=== PATIENT | female | born 1985 | race Caucasian/White ===

== ENCOUNTER 2024-02-09 12:17 | Emergency (ER) | payer BC, SELFPAY ==
[2024-02-09 12:19] VITALS: BP 112/73; PULSE 84; RESP 16; TEMP 35.9; O2SAT 95; BMI 31.4
--- NOTE | 2024-02-09 12:29 | US_ITS ---
STUDY: ABDOMINAL ULTRASOUND - RIGHT UPPER QUADRANT REASON FOR VISIT: Female, 38 years old. ABDOMEN PAIN ABDOMEN PAIN TECHNIQUE: Ultrasound evaluation of the right upper quadrant was performed with real-time and static fajardo-scale imaging. TECHNICAL QUALITY: Adequate. COMPARISON: None FINDINGS: Liver: There is normal echogenicity of the liver. The bile ducts are within normal limits. There is hepatic color flow. The direction of portal flow is hepatopetal. There is no demonstrated mass lesion. Gallbladder: Normal distended gallbladder. The gallbladder wall measures 3.1 mm. There is a negative sonographic Juan''s sign. There is no pericholecystic fluid. There are multiple echogenic structures within the gallbladder, consistent with multiple gallstones. Common Bile Duct (C.B.D.): The common bile duct measures ( in mm): 4.4 Pancreas: Normal size of the head, body of the pancreas. There is normal echogenicity of the pancreas. There is no demonstrated pancreatic mass or cyst. Right Kidney: Normal size of the right kidney. The right kidney measures 11.3 cm. . Normal renal cortex. There is no demonstrated renal mass or cyst. There is no right hydronephrosis. Aorta: It is not visualized. There is too much overlying bowel gas. . US/Gallbladder IMPRESSION: GALLSTONES Note: Renal size measurements and size measurements of other organs etc may vary depending on modality and audio operator dependent variations in measurements. (i.e. Measuring a kidney on an US does not correlate with an exact same measurement on a CT.) Electronically Signed: Yvon Sanchez MD at 14:32 EDT ,
--- NOTE | 2024-02-09 12:30 | ED.VIS.GI ---
HPI HPI - GI History of Present Illness Chief Complaint: Abd Pain Narrative Narrative: 38-year-old female who denies significant past medical history presents with her because of right upper quadrant and back pain that started on Saturday. Patient states that she really has not eaten over the last 3 days because she has had decreased appetite. She states she started having back pain on the right on Saturday. Since then its travel more towards the front in the right upper quadrant. 3 days ago she did have a bout of nausea and vomiting where she vomited 3 times without any blood in her emesis. Since then she has had pain in that area. They relate history that she had bouts of right upper quadrant pain that usually resolves but this is the first time it has been more constant. No previous abdominal surgeries. No fevers or chills, no problems with bowel movements, but she really has not had a bowel movement since the beginning of this right upper quadrant pain that she is experiencing. They state that they went to an urgent care and were sent to the emergency department for imaging of her gallbladder. PFSH PFSH Home Medications ?Medication ?Instructions ?Recorded ?Last Taken ?Type hydrocodone-acetaminophen 5-325mg 1 tab PO Q6H PRN PRN Pain 3 days 02/09/24 Unknown Rx 5mg-325mg #12 TABLETS Allergy/AdvReac Type Severity Reaction Status Date / Time diphenhydramine (From AdvReac Unknown PT UNSURE Verified 02/09/24 12:19 Benadryl) OF REACTION Surgical History [place] teeth extracted Social History Smoking Status: Current every day smoker tobacco type: e-cigarettes ROS ROS ED ROS Narrative Constitutional: No fever, no chills. Decreased appetite. HEENT: No sore throat. No neck pain. No loss of vision. No rhinorrhea. Cardiovascular: No chest pain. No palpitations. No pedal edema. Respiratory: No cough, no shortness of breath. Abdominal: Right upper quadrant abdominal pain. Positive nausea and vomiting-resolved/improved Genitourinary: No dysuria. No hematuria. Musculoskeletal: No myalgias. No arthralgias. Neurologic: No headaches. No dizziness. No lightheadedness. Skin: No rash. No change in color. Psychiatric: No depression. No anxiety. EXAM Physical Exam Narrative Exam Narrative: Afebrile. Vital signs noted. Cardiovascular examination reveals a regular rate and rhythm. Lungs are clear to auscultation bilaterally. HEENT examination PERRL, EOMI. Abdominal examination reveals mild tenderness to palpation of the right upper quadrant with questionable Juan sign. Abdomen soft with positive bowel sounds. No guarding or rebound. Neurological examination nonfocal and nonlateralizing. Awake, alert. Const Vital Signs: 02/09/24 12:19 02/09/24 14:18 Temperature 96.6 F L Temperature Source Temporal Pulse Rate 84 97 Respiratory Rate 16 18 Blood Pressure 112/73 120/65 Blood Pressure Mean 86 83 Pulse Ox 95 99 Oxygen Delivery Method Room Air Room Air MDM MDM MDM Narrative Medical decision making narrative: Differential diagnosis includes cholecystitis versus choledocholithiasis versus pancreatitis. I have low suspicion for urinary tract infection as her pain is more in her upper portion of her back and right upper quadrant of her abdomen. Will obtain CBC, CMP, and lipase as well as gallbladder ultrasound. She was administered a bolus of normal saline and morphine and ondansetron for analgesia. I reviewed her laboratory work and she has slightly elevated white count of 11.2 which I think is nonspecific, hemoglobin normal at 13.2, hematocrit 39.2, platelet count 336. Sodium is slightly low at 135, potassium 3.7 glucose normal at 103. Lipase normal at 16. Hence, I doubt gallstone pancreatitis. I reviewed the radiology report of the ultrasound of the right upper quadrant/gallbladder. While there are gallstones, there is no evidence of obstruction, no RUDY cholecystic fluid, common bile duct 4.4 mm. I do not think she has cholecystitis. She did require an additional dose of morphine for analgesia. At this point in time, she feels improved and would like to be discharged. I asked about referral to surgery, but they are from out of town and actually live in [place]. She was written a prescription for 12 [place] tablets. She was told to start a low-fat diet and start clear liquids and advance as tolerated. She should seek medical attention with fever, increased pain, new or worsening symptoms. Disposition is discharged in stable condition. History & Record Review Discussion w/independent historian: Patient and Family () Lab Data Attestation: I reviewed the patient's lab results. Labs: Laboratory Results - last 24 hr 02/09/24 12:47 WBC 11.2 H RBC 4.18 L Hgb 13.4 Hct 39.2 MCV 93.8 MCH 32.1 H MCHC 34.2 RDW Std Deviation 42.9 RDW Coeff of [place] 12.5 Plt Count 336 MPV 9.5 Immature Gran % (Auto) 0.400 Neut % (Auto) 73.1 H Lymph % (Auto) 15.7 L [place] % (Auto) 9.0 Eos % (Auto) 1.4 Baso % (Auto) 0.4 Absolute Neuts (auto) 8.2 H Absolute Lymphs (auto) 1.75 Nucleated RBC % 0 Sodium 135 L Potassium 3.7 Chloride 105 Carbon Dioxide 25.0 Anion Gap 5 BUN 9 Creatinine 0.60 Estim Creat Clear Calc 162.12 Est GFR (MDRD) Af Amer 142 Est GFR (MDRD) Non-Af 117 BUN/Creatinine Ratio 14.9 Glucose 103 Calcium 9.0 Total Bilirubin 2.20 H AST 9 L ALT 15 Alkaline Phosphatase 53 Total Protein 7.8 Albumin 3.7 Globulin 4.1 Albumin/Globulin Ratio 0.9 Lipase 16 Radiography Diagnostic Testing: Clinical Impression(s) from Imaging Studies Gallbladder Ultrasound 02/09/24 12:29 IMPRESSION: GALLSTONES Note: Renal size measurements and size measurements of other organs etc may vary depending on modality and finish mill operator dependent variations in measurements. (i.e. Measuring a kidney on an US does not correlate with an exact same measurement on a CT.) Electronically Signed: Yvon Sanchez MD at 14:32 EDT , Discharge Plan Triage Chief Complaint: Abd Pain ED Provider: Eric Martinez Dx/Rx/DC Orders Clinical Impression: Abdominal pain, RUQ, Gallstones, Biliary colic Instructions: ED Gallstones with Biliary Colic Prescriptions: New hydrocodone-acetaminophen 5-325 mg tablet 1 tab PO Q6H PRN PRN (Reason: Pain) 3 Days Qty: 12 0RF Primary Care Provider: Care Physician,No Primary Referrals: Care Physician,No Primary [Primary Care Provider] - Activity Restrictions/Additional Instructions: Follow-up with the surgeon of your choice in your hometown. Seek medical attention if you get fever, increased pain, new or worsening symptoms. Avoid fatty foods. Start a clear liquid diet and advance as tolerated. Print Language: Citizen Of [place] Disposition Disposition: Home, Self Care
[2024-02-09] MEDS: 0.9% Normal Saline (1000mL) 1,000 ML 999 ML IV (12:51)
[2024-02-09] MEDS: Ondansetron 4 MG/2 ML Vial IV (12:52)
[2024-02-09] MEDS: Morphine 4 MG/ML Syringe IV ×2 (12:52→14:26)
[2024-02-09 12:59] LABS: Absolute Lymphocyte Count 1.75 X10^3/uL (0.83-4.51); Absolute Neutrophil Count 8.2 X10^3/uL (2.0-7.7); Basophil# 0.05 X10^3/uL; Basophil% 0.4 % (0-1); Eosinophil# 0.16 X10^3/uL; Eosinophils% 1.4 % (0-5); Hematocrit 39.2 % (37-47); Hemoglobin 13.4 g/dL (12.0-15.0); Lymphocyte # 1.75 X10^3/ul (0.83-4.51); Lymphocyte % 15.7 % (19-41); Mean Corp Hgb Conc 34.2 g/dL (32-36); Mean Corpuscular Hgb 32.1 pg (27.0-32.0); Mean Corpuscular Volume 93.8 fL (81-99); Mean Platelet Vol. 9.5 fl (6.2-12.0); NRBC Flagged by Analyzer 0 % (0-5); Neutrophil # 8.17 X10^3/uL (2.7-7.7); Neutrophil % 73.1 % (47-70); Platelet Count 336 K/mm3 (150-450); RBC Distribution Width CV 12.5 % (11.6-14.6); RBC Distribution Width SD 42.9 fl (35.1-43.9); Red Blood Count 4.18 M/mm3 (4.2-5.4); White Blood Count 11.2 K/mm3 (4.4-11.0)
[2024-02-09 13:13] LABS: ALB/GLOB Ratio 0.9 RATIO (0.9-2.4); AST(SGOT) 9 U/L (15-37); Alanine Aminotransfer ALT/SGPT 15 U/L (13-56); Albumin, Serum 3.7 g/dL (3.2-5.0); Alkaline Phosphatase 53 U/L (45-117); Anion Gap 5 (5-15); BUN 9 mg/dL (7-18); BUN/Creat Ratio 14.9 RATIO (10-20); Chloride 105 mmol/L (98-107); EST Glomerular Filtration Rate 117 mL/min (>60); Est Glom Filt Rate - Afr Amer 142 mL/min (>60); Estimated Creatinine Clearance 162.12 ml/min; Globulin 4.1 g/dL (2.2-4.2); Glucose 103 mg/dL (74-106); Lipase 16 U/L (13-75); Potassium 3.7 mmol/L (3.5-5.1); Protein, Total 7.8 g/dL (6.4-8.2); Sodium Level 135 mmol/L (136-145)
[2024-02-09 14:18] VITALS: BP 120/65; PULSE 97; RESP 18; O2SAT 99
[2024-02-09 15:22] VITALS: BP 103/69; PULSE 71; RESP 18; TEMP 37.1; O2SAT 97
== END 2024-02-09 15:22 | disposition home or self-care (01) ==
PROVIDERS: Emergency Provider Emergency Medicine; Visit Provider Emergency Medicine
DX: R10.11 Right upper quadrant pain (principal); K80.70 Calculus of gallbladder and bile duct without cholecystitis without obstruction; F17.290 Nicotine dependence, other tobacco product, uncomplicated
CPT/HCPCS: 76705; 80053; 83690; 85025; 96361; 96374; 96375; 96376; 99284; J7030; A4216; J2405